=== PATIENT | female | born 1995 | race American Indian/Alaskan Native ===

== ENCOUNTER 2018-04-24 12:54 | Emergency (ER) | payer SELFPAY ==
--- NOTE | 2018-04-24 14:06 | Emergency Department Report ---
Blank Doc - Documentation Documentation: Patient is a 22-year-old female who is approximately 11 weeks who is presenting with some lower abdominal discomfort and vaginal spotting. Patient states she really only noticing this when she urinates and wipes. There 's been gone for 1 day. Patient will have an ultrasound performed here in the emergency department as well as urinalysis to rule out U. TI
[2018-04-24 14:50] LABS: Bilirubin,Urine NEG (Negative); Blood,Urine MOD (Negative); Color,Urine Amber (Yellow); Mucus,Urine 3+ /HPF
--- NOTE | 2018-04-24 16:44 | Emergency Department Report ---
ED Female HPI - General Chief complaint: Vaginal Bleeding Stated complaint: VAG BLEED/PREG Time Seen by Provider: 04/24/18 14:02 Source: patient, family Mode of arrival: Ambulatory Limitations: No Limitations - History of Present Illness Initial comments: This is a 22-year-old female here reports that she is 11 weeks and reports intermittent spotting since last week. Denies any abdominal pain at present. Denies any urinary burning frequency or urgency. Patient reports that she is here to be seen. She says she has an appointment with my SENSOR SPECIALIST on 05/12/2018. She said last week she noticed when she wiped she had some spot and then it started yesterday on wiping. She is not wearing a pad per patient. She is not taking vitamin. 1 MD Complaint: vaginal bleeding Onset/Timin -: week(s) (2 episodes) Severity scale (0 -10): 0 Are you Now?: Yes (11 weeks) Last Menstrual Period: 02/05/18 EDC: 11/12/18 Associated Symptoms: vaginal bleeding. denies: vaginal discharge, abdominal pain, nausea/vomiting, fever/chills, headaches, loss of appetite, dysuria, hematuria, rash, seizure, shortness of breath, syncope, weakness - Related Data Sexually active: Yes : 1 Para: 0 Previous Rx's Medication Instructions Recorded Last Taken Type Nitrofurantoin Monohyd/M-Cryst 100 mg PO Q12H 7 Days #14 capsule 04/24/18 Unknown Rx [Macrobid 100 mg Capsule] Vit No.130/Iron/Folic 1 each PO QDAY 30 Days #30 tablet 04/24/18 Unknown Rx [ Tablet] Allergies Allergy/AdvReac Type Severity Reaction Status Date / Time No Known Allergies Allergy Verified 04/24/18 13:11 ED Review of Systems ROS: Stated complaint: VAG BLEED/PREG Other details as noted in HPI Constitutional: denies: chills, fever Eyes: denies: eye discharge ENT: denies: ear pain, throat pain Respiratory: denies: cough, shortness of breath, SOB with exertion, SOB at rest , stridor, wheezing Cardiovascular: denies: chest pain, palpitations, edema, syncope Gastrointestinal: denies: abdominal pain, nausea, vomiting, diarrhea, constipation, hematemesis, melena, hematochezia Genitourinary: abnormal menses, other (vaginal spotting). denies: urgency, dysuria, frequency, hematuria, discharge, dyspareunia Musculoskeletal: denies: back pain, joint swelling, arthralgia Skin: denies: rash, lesions Neurological: denies: headache, weakness ED Past Medical Hx - Past Medical History Previous Medical History?: No - Surgical History Past Surgical History?: No - Family History Family history: no significant - Social History Smoking Status: Never Smoker Substance Use Type: None - Medications Home Medications: Home Medications Medication Instructions Recorded Confirmed Last Taken Type Nitrofurantoin Monohyd/M-Cryst 100 mg PO Q12H 7 Days #14 capsule 04/24/18 Unknown Rx [Macrobid 100 mg Capsule] Vit No.130/Iron/Folic 1 each PO QDAY 30 Days #30 tablet 04/24/18 Unknown Rx [ Tablet] ED Physical Exam - General Limitations: No Limitations General appearance: alert, in no apparent distress - Head Head exam: Present: atraumatic, normocephalic, normal inspection - Eye Eye exam: Present: normal appearance, PERRL, EOMI Pupils: Present: normal accommodation - ENT ENT exam: Present: normal exam, normal orophraynx, mucous membranes moist - Neck Neck exam: Present: normal inspection, full ROM. Absent: tenderness, lymphadenopathy - Respiratory Respiratory exam: Present: normal lung sounds bilaterally. Absent: respiratory distress, chest wall tenderness - Cardiovascular Cardiovascular Exam: Present: regular rate, normal rhythm, normal heart sounds - GI/Abdominal GI/Abdominal exam: Present: soft, normal bowel sounds. Absent: distended, tenderness, guarding, rebound, rigid, organomegaly, mass, bruit, pulsatile mass , hernia - Extremities Exam Extremities exam: Present: normal inspection, full ROM, normal capillary refill , other (no clubbing, cyanosis or edema. +2 pulses to all extremities and no neurovascular compromise). Absent: tenderness, pedal edema, joint swelling, calf tenderness - Back Exam Back exam: Present: normal inspection. Absent: full ROM, tenderness, CVA tenderness (R), CVA tenderness (L), muscle spasm, paraspinal tenderness, vertebral tenderness, rash noted - Neurological Exam Neurological exam: Present: alert, oriented X3, normal gait - Psychiatric Psychiatric exam: Present: normal affect, normal mood - Skin Skin exam: Present: warm, dry, intact, normal color. Absent: rash ED Course Vital Signs 04/24/18 13:11 Temperature 98.5 F Pulse Rate 81 Respiratory 18 Rate Blood Pressure 120/76 O2 Sat by Pulse 99 Oximetry - Reevaluation(s) Reevaluation #1: 04/24/18 17:37 Patient had an uneventful ED stay. She did tolerate oral liquids. No abdominal pain and no bleeding while in the ER. ED Medical Decision Making - Lab Data Lab Results 04/24/18 04/24/18 04/24/18 Range/Units 14:07 14:20 14:20 HCG, Quant [id number] H (0-4) mIU/mL Urine Color Terri (Yellow) Urine Turbidity Clear (Clear) Urine pH 6.0 (5.0-7.0) Ur Specific [place] 1.024 (1.003-1.030) Urine Protein 100 mg/dl (Negative) mg/dL Urine Glucose (UA) Neg (Negative) mg/dL Urine Ketones Tr (Negative) mg/dL Urine Blood Mod (Negative) Urine Nitrite Neg (Negative) Urine Bilirubin Neg (Negative) Urine Urobilinogen 4.0 (<2.0) mg/dL Ur Leukocyte Esterase Lg (Negative) Urine WBC (Auto) 32.0 H (0.0-6.0) /HPF Urine RBC (Auto) 6.0 (0.0-6.0) /HPF U Epithel Cells (Auto) 30.0 H (0-13.0) /HPF Urine Mucus 3+ /HPF Urine Yeast (Budding) 1+ /HPF Blood Type A POSITIVE - Radiology Data Radiology results: report reviewed OB ultrasound fetus less than 14 weeks dictated by radiologist's and report reviewed by myself. Please see report below. Patient: TANVIR CRUZ MR#: [id number] : 1995 Acct:[id number] Age/Sex: 22 / F ADM Date: 04/24/18 Loc: ED Attending Dr: Ordering Physician: CHAUNCEY DEVINE MD Date of Service: 04/24/18 Procedure(s): US OB <= 14 weeks fetus Accession Number(s): [id number] cc: CHAUNCEY DEVINE MD FINAL REPORT EXAM: US OB lt; = 14 WEEKS FETUS HISTORY: preg with vag bleeding TECHNIQUE: PRIORS: None. FINDINGS: There is gestational sac present within the uterus. There is pole identified with crown-rump length of 5.5 centimeters corresponding to estimated gestational age of 12 weeks 1 day with estimated date of delivery November 05, 2018. A yolk sac is identified cardiac activity is present with heart rate 149 beats per minute Right ovary is 2.8 x 2.2 x 3.4 centimeters. No abnormal adnexal mass identified. The left ovary was not identified sonographically No free fluid seen in the cul-de-sac IMPRESSION: Single live intrauterine gestation estimated at 12 weeks 1 day Transcribed By: CHAVA Dictated By: LLUVIA HINKLE MD Electronically Authenticated By: LLUVIA HINKLE MD Signed Date/Time: 04/24/181727 DD/ 27 TD/TT: 04/24/181727 - Medical Decision Making ED course: This is a 22-year-old female here reporting that she had 2 episodes of spotting without any clots over the past week. She says she is weeks' and she is scheduled to have ORDER SELECTOR physician on 05/12/2018. Denies any abdominal pain or urinary symptoms and she is not on vitamin. She is 1. She was screened by Dr. Chauncey Devine were displaced. I saw and examined the patient and her abdominal exam is normal. Quantitative hCG positive and correlate with ultrasound. Urinalysis with large amount of leukocyte esterase, moderate blood, trace ketone, positive white blood cells but she has epithelial cells which is contaminated. OB ultrasound less than 14 weeks fetus dictated by radiologist and report reviewed by myself. Reveal patient's single living IUP at 12 weeks and 1 day with cardiac activity at 149 bpm. I discussed ultrasound report and urinalysis results the patient and one of the treatment plan with her and she voiced understanding. A/P 1: Threatened miscarriage-positive quantitative hCG and OB ultrasound less than 14 weeks reveals a patient at 12 weeks and 1 day single live IUP with no mention of chorionic disorder. Patient scheduled for SENSOR SPECIALIST visit on 2017. She will be started on vitamin 2. UTI and -patient will be placed on Macrobid. Urinalysis is contaminated but she has large amount of leukocyte Estrace, blood and white blood cell with trace ketone saw cover her. Unable to send culture due to contamination. I discussed the patient that she needs to hydrate herself with at least 2 L of water daily to prevent any cramping in and flush her bladder out. Patient educated on and bleeding, miscarriage, signs and symptoms to look for and when to come back to the hospital, vitamin and Macrobid, diagnosis, follow-up in nutrients for the baby. I also educated her on her test results, urinalysis. She voiced understanding Discharge home from ED in stable condition to follow-up with my EGG CRATER when scheduled or return to the emergency room if she developed continued bleeding, increasing bleeding with clots, abdominal pain and back pain, fever and/or chills. She voiced understanding. Discharged home in stable condition, vital signs stable she is afebrile and discharged home with Macrobid and vitamin. - Differential Diagnosis threatened miscarriage, UTI Critical care attestation.: If time is entered above; I have spent that time in minutes in the direct care of this critically ill patient, excluding procedure time. ED Disposition Clinical Impression: Threatened miscarriage in early , Vaginal bleeding UTI (urinary tract infection) during Qualifiers: Trimester: second trimester Qualified Code(s): O23.42 - Unspecified infection of urinary tract in , second trimester Disposition: DC-01 TO HOME OR SELFCARE Is pt being admited?: No Does the pt Need Aspirin: No Condition: Stable Instructions: Urinary Tract Infection in Women (ED), Threatened Miscarriage (ED ) Additional Instructions: Please take vitamin daily as prescribed Macrobid for urinary tract infection The appointment with my SENSOR SPECIALIST on 05/12/2018 Increase her fluid intake If he develops continued bleeding, increase in bleeding, clots, abdominal or back pain, dizziness, please change emergency room [facility] Prescriptions: Nitrofurantoin Monohyd/M-Cryst [Macrobid 100 mg Capsule] 100 mg PO Q12H 7 Days # 14 capsule Vit No.130/Iron/Folic [ Tablet] 1 each PO QDAY 30 Days #30 tablet Referrals: PRIMARY CARE, [Primary Care Provider] - 3-5 Days [facility] [Provider Group] - 04/27/18 Forms: Work/School Release Form(ED)
--- NOTE | 2018-04-24 17:21 | Ultrasound Report ---
FINAL REPORT EXAM: US OB TRANSVAGINAL HISTORY: preg with vag bleeding TECHNIQUE: Ultrasound obstetrical transvaginal PRIORS: None. FINDINGS: There is gestational sac present within the uterus. There is pole identified with crown-rump length of 5.5 centimeters corresponding to estimated gestational age of 12 weeks 1 day with estimated date of delivery November 05, 2018. A yolk sac is identified cardiac activity is present with heart rate 149 beats per minute Right ovary is 2.8 x 2.2 x 3.4 centimeters. No abnormal adnexal mass identified. The left ovary was not identified sonographically No free fluid seen in the cul-de-sac IMPRESSION: Single live intrauterine gestation estimated at 12 weeks 1 day
--- NOTE | 2018-04-24 17:32 | Ultrasound Report ---
FINAL REPORT EXAM: US OB < = 14 WEEKS FETUS HISTORY: preg with vag bleeding TECHNIQUE: PRIORS: None. FINDINGS: There is gestational sac present within the uterus. There is pole identified with crown-rump length of 5.5 centimeters corresponding to estimated gestational age of 12 weeks 1 day with estimated date of delivery November 05, 2018. A yolk sac is identified cardiac activity is present with heart rate 149 beats per minute Right ovary is 2.8 x 2.2 x 3.4 centimeters. No abnormal adnexal mass identified. The left ovary was not identified sonographically No free fluid seen in the cul-de-sac IMPRESSION: Single live intrauterine gestation estimated at 12 weeks 1 day
[2018-04-24 18:06] VITALS: BP 126/76
== END 2018-04-24 18:03 | disposition home or self-care (01) ==
LOC: ED 12:54
DX: O20.0 Threatened abortion (principal); O23.41 Unspecified infection of urinary tract in pregnancy, first trimester; Z3A.12 12 weeks gestation of pregnancy
CPT/HCPCS: 36415; 76801; 76817; 81001; 84702; 86900; 86901; 99284